=== PATIENT | male | born 1995 | race Hispanic/Latino ===

== ENCOUNTER 2024-05-14 21:24 | Emergency (ER) | payer SELFPAY ==
[2024-05-14] MEDS ORDERED: Boostrix 0.5 ML (Tdap) VIAL (>/=7 yrs of age) ONE (21:50)
[2024-05-14] MEDS ORDERED: CEFAZOLIN 2 GM VIAL ONE (22:47)
[2024-05-14] MEDS ORDERED: Morphine 4 MG/ML VIAL ONE (22:47)
[2024-05-14] MEDS ORDERED: Sodium Chloride 0.9% 100 ML ONE (22:48)
[2024-05-14] MEDS ORDERED: Lidocaine 1% (PF) 30 ML VIAL ONE (23:33)
[2024-05-15] MEDS ORDERED: Bacitracin 1 PK ONE (00:49)
== END 2024-05-15 00:55 | disposition home or self-care (01) ==
LOC: ERS 21:24
DX: S62.631B Displaced fracture of distal phalanx of left index finger, initial encounter for open fracture (principal); S61.313A Laceration without foreign body of left middle finger with damage to nail, initial encounter; S61.315A Laceration without foreign body of left ring finger with damage to nail, initial encounter; S61.112A Laceration without foreign body of left thumb with damage to nail, initial encounter; W29.3XXA Contact with powered garden and outdoor hand tools and machinery, initial encounter
CPT/HCPCS: 12002; 90471; 90715; 96374; 96375; J2272